=== PATIENT | female | born 1960 | race Caucasian/White ===

== ENCOUNTER → 2021-03-15 00:20 | Outpatient (CLI) | payer OTHER, SELFPAY ==
[2021-03-15 17:22] LABS: SARS-CoV-2 RNA PCR Negative (Negative)
== END ==
PROVIDERS: Visit Provider Surgery
DX: Z01.812 Encounter for preprocedural laboratory examination (principal); Z20.822 Contact with and (suspected) exposure to COVID-19
CPT/HCPCS: C9803; U0003; U0005

== ENCOUNTER 2021-03-15 08:17 | Outpatient (CLI) | payer OTHER, SELFPAY | END 2021-03-15 08:18 | disposition home or self-care (01) | LOC: ANHLAB 08:19 | PROVIDERS: Visit Provider Surgery | DX: Z01.818 Encounter for other preprocedural examination (principal); K41.90 Unilateral femoral hernia, without obstruction or gangrene, not specified as recurrent | CPT/HCPCS: 36415; 86850; 86900; 86901 ==

== ENCOUNTER 2021-03-18 01:42 | Day surgery (SDC) | payer OTHER, SELFPAY ==
[2021-03-13 14:32] VITALS: BMI 23.3
--- NOTE | 2021-03-13 15:01 | PC.NURSE ---
Report to the Outpatient Waiting Room, entrance under the green pavilion located off [facility], at time ___11:30AM_ on date __03/18/21 . OR Time: ___1:30PM . - You and your visitor will be asked a series of questions to screen for COVID 19 for your protection. - A mask is required within the hospital. - Only one visitor is allowed at this time. Patient visitors will be guided where to wait when not with patient. Preoperative COVID Testing Requirements: No COVID Test needed if: (proof is required; if not received patient will have Rapid Test prior to entry) - Patient has received COVID Vaccine at least 14 days prior to procedure date or - Patient has positive COVID test result within last 90 days of surgery date. COVID Test needed if above criteria is not met *COVID TESTING 03/15/21 AT 8:05AM If not COVID vaccinated a COVID test must be conducted within 72 hours of surgery and patient is asked to isolate self from time of testing until procedure. You will go to the [facility] for your COVID testing. The [facility] site is located at the corner of [address] [facility]. You will only be called if COVID results are positive and your surgeon may reschedule your elective surgery date. Patients may have clear liquids (water, carbonated beverages, clear teas, apple juice) until 3 hours prior to surgery with a maximum of 20 ounces. - No food from midnight until time of surgery - Infants may have breast milk until 4 hours before surgery, formula 6 hours prior to surgery. - Children will be allowed to drink immediately following surgery. If applicable, please bring a bottle or sippy cup to assist with drinking. Juice, water, soda, and popsicles are readily available. For infants on formula, please bring formula the day of surgery. Pacifiers are allowed. Take the following medications with a SIP of water the morning of surgery: ___NONE Medications to discontinue per physician ALL VITAMINS/SUPPLEMENTS 3 DAYS PRE-OP Date to take last dose 03/15/21 *HIBICLENS SHOWER MORNING OF SURGERY* Please no make-up, nail occitan, hairspray, perfume, deodorant, or body powder the day of surgery. No jewelry (including any body piercings) or valuables the day of surgery, leave them at home. Please take a shower or bath the night before, or the morning of, surgery with an antibacterial soap. Wear comfortable, loose fitting clothing. Children are encouraged to wear pajamas. - Jewelry must be removed prior to entering the operating room. Rings and piercings that are not removed may be cut off. - The hospital will not accept responsibility for valuables. - Please leave all valuables, including medications, at home the day of surgery. If you are going home after surgery, a licensed local owner operator truck driver must drive you home. - NO public transportation without another adult. - We recommend that an adult stay with you for 24 hours following discharge. - We also recommend that you do not drive, make important decision, drink alcoholic beverages, or take any drugs that were not prescribed by your health care provider for at least 24 hours after your discharge time. For Pediatric surgeries, we recommend two adults accompany the child home (only one inside the building at this time). Follow any additional instructions given to you from your surgeon. Telephone instructions given to __PATIENT and asked if any additional questions and then verbalized understanding. Patient advised to call surgeon office or pre surgery nurse liaison [phone] if any additional questions.
--- NOTE | 2021-03-18 09:15 | ECG_ITS ---
Measurements Intervals [place] Rate: 122 P: AK: 0 QRS: 42 QRSD: 85 T: 9 QT: 299 QTc: 426 Interpretive Statements ATRIAL FIBRILLATION WITH RAPID VENTRICULAR RESPONSE BASELINE WANDER- I, II ABNORMAL ECG Electronically Signed On 03-18-2021 12:49:39 SHEET SORTER by Omid Conroy D.O.
[2021-03-18] MEDS: ACETAMINOPHEN 500 MG TABLET 1000 MG PO (11:35)
--- NOTE | 2021-03-18 11:41 | WPDANESEPPF ---
Anes - Initial Pre Proc Eval Procedure: Operation Date: 03/18/21 13:30 Proposed Procedures p Laparoscopic Right Femoral Hernia Repair with Mesh, Davinci Assisted - Andrew Villela DO Date/Time: 03/18/21 11:41 Surgeon: Andrew Villela DO Pre Op Diagnosis: right femoral hernia Patient Data Age: 60 Gender: F Height: 1.57 m Weight: 58 kg Allergies Allergy/AdvReac Type Severity Reaction Status Date / Time No Known Allergies Allergy Mild Verified 03/18/21 11:33 Home Medications Medication Instructions Recorded Confirmed Type multivitamin 1 tablet PO DAILY 01/03/21 03/13/21 History ascorbic acid (vitamin C) 1,500 mg PO DAILY 03/13/21 03/13/21 History calcium carbonate-vitamin D3 1 tablet PO DAILY 03/13/21 03/13/21 History [Calcium + D] cholecalciferol (vitamin D3) 50 mcg PO DAILY 03/13/21 03/13/21 History vitamin B complex 1 cap PO DAILY 03/13/21 03/13/21 History zinc 100 mg PO DAILY 03/13/21 03/13/21 History Results Review: All pre-operative results and documents have been reviewed as part of the pre-operative evaluation. [facility] Past Medical History Medical History (Updated 03/18/21 @ 11:45 by Sal Prado MD) Brain aneurysm clipping 2005, mild vertigo/balance issues COPD (chronic obstructive pulmonary disease) Family History Family History Father Heart base tumor Mother Carcinoma of colon Sibling No problems noted. Sibling No problems noted. Social History Social History Smoking packs per day: 0.75 Smoking cigarettes per day: 15.0 Years smoked: 45 Smoking pack-years: 33.75 Smoking status: Former smoker Tobacco type: cigarettes Alcohol intake: current Drinks per week: 20 Substance use: never Living arrangements: alone Spiritual care concerns: No Anes - Eval Final PreProcedure Day of Procedure 03/18/21 11:41 Patient weight: normal Heart: regular rate and rhythm Lungs: clear to auscultation and normal air movement Airway: Mallampati scale class II Neurological: alert and oriented Last oral intake: >/= 8 hours ASA classification: III Emergent: no Anesthetic plan: proceed Anesthesia type and monitoring: general LMA Results Review: All pre-operative results and documents have been reviewed as part of the pre-operative evaluation. Informed Consent: The patient's anesthetic plan and its attendant risks and benefits were discussed with the patient/family/POA. Questions were solicited and answers provided to the satisfaction of the patient/family/POA.
[2021-03-18 11:45] VITALS: BP 131/76; PULSE 117; RESP 18; TEMP 36.4; O2SAT 98
--- NOTE | 2021-03-18 12:01 | SUR.PREOP ---
Informed Dr Prado and Dr Villela of patient's ekg showing new onset rapid afib. Dr Prado speaking with patient.
--- NOTE | 2021-03-18 12:20 | SUR.PREOP ---
Case cancelled. Patient taken per w/c to ER.
== END 2021-03-18 12:15 | disposition home or self-care (01) ==
PROVIDERS: Visit Provider Surgery
PROC: 8E0Y4CZ Robotic Assisted Procedure of Lower Extremity, Percutaneous Endoscopic Approach (ICD-10-PCS; CPT 49650; principal; 2021-03-18 13:30)
DX: K41.90 Unilateral femoral hernia, without obstruction or gangrene, not specified as recurrent (principal); I48.91 Unspecified atrial fibrillation; Z53.09 Procedure and treatment not carried out because of other contraindication
CPT/HCPCS: 93005; 99213; A9270; G0463

== ENCOUNTER 2021-03-18 12:14 | Emergency (ER) | payer OTHER, SELFPAY ==
[2021-03-18] VITALS (26 sets, daily range): BP systolic 107–152; BP diastolic 76–96; PULSE 77–121; RESP 13–35; TEMP 36.1–36.5; O2SAT 94–100
--- NOTE | ~2021-03-18 | XR_ITS ---
XR chest 2V 03/18/2021 15:55 Indication: Atrial fibrillation Procedure: PA and lateral views the chest Comparison: 03/11/2009 Findings: There is a new 1 cm nodule overlying the left midlung. No focal pneumonia, edema, pleural e ffusion or pneumothorax. There is left basilar atelectasis. There is scoliosis. Impression: 1: New 1 cm nodule left midlung. Follow-up CT chest recommended. Reviewed, dictated and finalized at location A. TIZER Impression: 1: New 1 cm nodule left midlung. Follow-up CT chest recommended.
--- NOTE | 2021-03-18 15:47 | ECG_ITS ---
Measurements Intervals [place] Rate: 107 P: IA: 0 QRS: 68 QRSD: 85 T: 24 QT: 296 QTc: 395 Interpretive Statements ATRIAL FLUTTER/TACHYCARDIA WITH RAPID VENTRICULAR RESPONSE NONSPECIFIC T-WAVE ABNORMALITY- ANTEROLAT/HIGH LAT LEADS ABNORMAL ECG Electronically Signed On 03-18-2021 16:21:09 VINYL WELDER AND FABRICATOR by Omid Conroy D.O.
--- NOTE | 2021-03-18 16:01 | ED.ARRPALP ---
HPI - Arrhythmia/Palpitations General Chief Complaint: Arrhythmia/Palpitations <Anaid Brown MD - Last Filed: 03/19/21 18:11> Stated Complaint: Sent from Pre-op, New A-fib. <Anaid Brown MD - Last Filed: 03/19/21 18:11> Time Seen by Provider: 03/18/21 15:41 <Anaid Brown MD - Last Filed: 03/19/21 18:11> Source: patient and RN notes reviewed <Anaid Brown MD - Last Filed: 03/19/21 18:11> Mode of arrival: ambulatory <Anaid Brown MD - Last Filed: 03/19/21 18:11> Limitations: no limitations <Anaid Brown MD - Last Filed: 03/19/21 18:11> History of Present Illness HPI narrative: This is a 60 year old female who presents for evaluation of an arrhythmia. Patient had an EKG performed in preop before her hernia surgery, and she was found to be in new onset afib with RVR. She denies history of arrhythmia diagnosis. She reports she may have noticed heart racing over the past years 1 or 2 times. She denies heart racing, dizziness, chest pain, dizziness, nausea, vomiting or diarrhea. She reports shortness of breath but states this has been present for 1 year. She attributes her shortness of breath due to her smoking. She does not take any medications. <Anaid Brown MD - Last Filed: 03/19/21 18:11> Related Data Home Medications: Home Medications Medication Instructions Recorded Confirmed multivitamin 1 tablet PO DAILY 01/03/21 03/13/21 ascorbic acid (vitamin C) 1,500 mg PO DAILY 03/13/21 03/13/21 calcium carbonate-vitamin D3 1 tablet PO DAILY 03/13/21 03/13/21 [Calcium + D] cholecalciferol (vitamin D3) 50 mcg PO DAILY 03/13/21 03/13/21 vitamin B complex 1 cap PO DAILY 03/13/21 03/13/21 zinc 100 mg PO DAILY 03/13/21 03/13/21 <Anaid Brown MD - Last Filed: 03/19/21 18:11> Allergies/Adverse Reactions: Allergies Allergy/AdvReac Type Severity Reaction Status Date / Time No Known Allergies Allergy Mild Verified 03/18/21 15:39 <Anaid Brown MD - Last Filed: 03/19/21 18:11> Review of Systems Review of Systems: All systems reviewed & are unremarkable except as noted in HPI and below <Anaid Brown MD - Last Filed: 03/19/21 18:11> [facility] Past Medical History Medical History: Medical History (Updated 03/19/21 @ 01:34 by Yue Segovia MD) Brain aneurysm clipping 2005, mild vertigo/balance issues COPD (chronic obstructive pulmonary disease) <Anaid Brown MD - Last Filed: 03/19/21 18:11> Surgical History Surgical History: Surgical History (Updated 03/18/21 @ 16:20 by Anaid Brown MD) Hx of tonsillectomy <Anaid Brown MD - Last Filed: 03/19/21 18:11> Family History Family History: Family History Father Heart base tumor Mother Carcinoma of colon Sibling No problems noted. Sibling No problems noted. <Anaid Brown MD - Last Filed: 03/19/21 18:11> Social History Social History: Social History (Updated 03/18/21 @ 16:20 by Anaid Brown MD) Smoking packs per day: 0.75 Smoking cigarettes per day: 15.0 Years smoked: 45 Smoking pack-years: 33.75 Smoking status: Former smoker Tobacco type: cigarettes Alcohol intake: current Drinks per week: 20 Alcohol use details: 2 beers per night Substance use: never Spiritual care concerns: No <Anaid Brown MD - Last Filed: 03/19/21 18:11> Exam Const: General: no acute distress and alert <Anaid Brown MD - Last Filed: 03/19/21 18:11> Orientation/consciousness: patient oriented x3 <Anaid Brown MD - Last Filed: 03/19/21 18:11> Eyes: EOM: EOMs intact bilaterally <Anaid Brown MD - Last Filed: 03/19/21 18:11> Resp: Effort & Inspection: normal respiratory effort and no retractions <Anaid Brown MD - Last Filed: 03/19/21 18:11> Auscultation: clear to auscultation bilaterally <Anaid Camilo
[2021-03-18] MEDS: METOPROLOL TARTRATE INJ 5 MG/5 ML VIAL IV PUSH (16:16)
[2021-03-18 16:32] LABS: Basophils Percent Auto 0.5 % (0.2-1.2); Eosinophils Absolute Auto 0.1 K/mm3 (0-0.3); Eosinophils Percent Auto 2.5 % (0-4.4); Hematocrit 45.2 % (37.0-47.0); Hemoglobin 14.7 g/dL (12.0-15.0); Immature Granulocyte Absolute 0.01 K/mm3 (0.00-0.031); Immature Granulocyte Percent A 0.3 % (0-0.5); Lymphocytes Absolute Auto 1.44 K/mm3 (0.9-3.2); Lymphocytes Percent Auto 36.2 % (18.3-44.2); Mean Corpuscular HGB Conc 32.5 g/dl (32-36); Mean Corpuscular Hemoglobin 30.5 pg (26-34); Mean Corpuscular Volume 93.8 fl (80-100); Mean Platelet Volume 12.8 fl (7.4-10.4); Monocytes Absolute Auto 0.4 K/mm3 (0.1-0.6); Monocytes Percent Auto 9.3 % (2.6-8.5); Neutrophils Percent Auto 51.2 % (45.5-73.1); Platelet Count Result 93 k/mm3 (150-375); Red Blood Count 4.82 M/mm3 (4.2-5.4); Red Cell Distribution Width 12.4 % (11.5-14.5)
[2021-03-18 16:44] LABS: Prothrombin Time 13.5 Seconds (11.1-14.7)
[2021-03-18 16:45] LABS: Alanine Aminotransferase 27 U/L (4-35); Albumin Level 4.1 g/dL (3.5-5.1); Alkaline Phosphatase 101 U/L (38-126); Anion Gap 6 mmol/L (8-16); Aspartate Amino Transferase 26 U/L (14-36); Bilirubin,Total 1.1 mg/dL (0.2-1.3); Blood Urea Nitrogen 15 mg/dL (7-17); Calcium 9.9 mg/dL (8.4-10.2); Carbon Dioxide 25 mmol/L (22-30); Chloride 105 mmol/L (98-107); Estimated CRCL calculation 94 ml/min; Estimated Glomerular Filt Rate > 60; Glucose 92 mg/dL (65-110); Magnesium 1.9 mg/dL (1.6-2.3); Partial Thromboplastin Time 24.4 SECONDS (22.3-36.8); Potassium 4.3 mmol/L (3.4-5.0); Sodium 136 mmol/L (137-145)
[2021-03-18 16:51] LABS: NT Pro B Type Natriuretic Pept 1080 pg/mL (5-100)
[2021-03-18 17:02] LABS: Ethanol < 10 mg/dL (<10)
[2021-03-18] MEDS: METOPROLOL TARTRATE 25 MG TABLET PO (17:23)
[2021-03-18 17:46] LABS: Thyroid Stimulating Hormone Reflex < 0.015 uIU/mL (0.465-4.68)
[2021-03-18 18:17] LABS: Free T4 Free Thyroxine Reflex 3.39 ng/dL (0.78-2.19)
--- NOTE | 2021-03-18 19:14 | PC.NURSE ---
Pt not wanting to be admitted to the hospital. Per MD Segovia, pt to sign out AMA, however he wrote a prescription and followup information for patient to take with her. Reviewed risks of leaving with pt who verbalized understanding. Pt appreciative of the prescription and cardiology/PCP follow up information provided, states she has new insurance and doesn't know what it will cover so she does not wish to stay and agrees to comply with followup instructions. Pt A&Ox4 in NAD upon leaving with visitor, VS as documented. IV removed.
== END 2021-03-18 19:17 | disposition left against medical advice (07) ==
PROVIDERS: Emergency Provider General Practice
DX: I48.91 Unspecified atrial fibrillation (principal); E05.90 Thyrotoxicosis, unspecified without thyrotoxic crisis or storm; J44.9 Chronic obstructive pulmonary disease, unspecified; Z87.891 Personal history of nicotine dependence; R94.31 Abnormal electrocardiogram [ECG] [EKG]
CPT/HCPCS: 36415; 71046; 80053; 80307; 83735; 83880; 84439; 84443; 85025; 85610; 85730; 93005; 96374; 99284; A9270

== ENCOUNTER 2021-04-18 15:02 | Outpatient (CLI) | payer OTHER, SELFPAY ==
--- NOTE | 2021-04-18 | ECHO_ITS ---
Patient Info Name: Yenny Christy Age: 60 years : 1960 Gender: Female Ht: 63 in Wt: 130 lbs BSA: 1.63 m2 HR: 107 bpm BP: 143 / 83 mmHg Heart Rhythm: Atrial Fibrillation Technical Quality: Good Exam Date: 04/18/2021 3:26 PM Exam Location: [facility] Patient Status: Outpatient Admit Date: 04/18/2021 Staff Ordering Physician: Orville Jones MD Fermentation Engineer: Raven Griffith RCS Attending Provider: Orville Jones MD Exam Type: CA echo doppler color flow Study Info Indications - persistant afib Complete two-dimensional, color flow and Doppler transthoracic echocardiogram is performed. Summary 1. Complete two-dimensional, color flow and Doppler transthoracic echocardiogram is performed. 2. Left ventricular chamber dimension is normal. 3. Left ventricular systolic function is normal, estimated at 65-70%. 4. There is mildly increased left ventricular wall thickness. 5. The left ventricular diastolic function is indeterminate. 6. Left atrial chamber dimension is moderately enlarged. 7. Right atrial chamber dimension is mildly enlarged. 8. There is mild to moderate mitral valve regurgitation. 9. The mitral valve has thickened leaflets. 10. There is mild tricuspid valve regurgitation. 11. Mild pulmonary hypertension, estimated pulmonary arterial systolic pressure is 35 mmHg. 12. There is mild pulmonic regurgitation. Left Ventricle Left ventricular chamber dimension is normal. Left ventricular systolic function is normal, estimated at 65-70%. There is mildly increased left ventricular wall thickness. The left ventricular diastolic function is indeterminate. Right Ventricle Right ventricular chamber dimension is normal. Right ventricular systolic function is normal. Left Atria Left atrial chamber dimension is moderately enlarged. Right Atria Right atrial chamber dimension is mildly enlarged. Atrial Septum Intact interatrial septum visualized by color flow imaging. Aortic Valve The aortic valve is trileaflet. There is no aortic valve sclerosis. There is no aortic valve stenosis. There is trace aortic valve regurgitation. Pulmonic Valve The pulmonic valve is normal. There is no pulmonic valve stenosis. There is mild pulmonic regurgitation. Mitral Valve The mitral valve has thickened leaflets. There is no mitral valve stenosis. There is mild to moderate mitral valve regurgitation. Tricuspid Valve The tricuspid valve leaflets are normal. There is no significant tricuspid valve stenosis. There is mild tricuspid valve regurgitation. Mild pulmonary hypertension, estimated pulmonary arterial systolic pressure is 35 mmHg. Pericardium/Pleural The pericardium appears normal. There is no pericardial effusion. Inferior Vena Cava Dilated inferior vena cava with >50% collapse upon inspiration consistent with elevated right atrial pressure, 10 mmHg. Aorta The aortic root size at the sinus of Valsalva is normal. Left Ventricular Outflow Tract Name Value Normal LVOT 2D LVOT Diameter 2.0 cm LVOT Doppler LVOT Peak Gradient 5 mmHg LVOT
== END 2021-04-18 15:03 | disposition home or self-care (01) ==
LOC: ANHCARD 15:04
PROVIDERS: Visit Provider Internal Medicine Cardiovascular Disease
DX: I48.19 Other persistent atrial fibrillation (principal); E05.90 Thyrotoxicosis, unspecified without thyrotoxic crisis or storm; I27.20 Pulmonary hypertension, unspecified; I51.7 Cardiomegaly
CPT/HCPCS: 93306

== ENCOUNTER 2023-03-11 00:06 | Day surgery (SDC) | payer OTHER, SELFPAY ==
[2023-03-01 16:03] VITALS: BMI 25.2
--- NOTE | 2023-03-09 10:39 | SUR.PREOP ---
Patient called regarding upcoming procedure. Reviewed preop instructions, appointment times, and procedure prep.
--- NOTE | 2023-03-10 15:08 | PM.HPGS ---
History of Present Illness History of Present Illness Consent: Risks, benefits, and alternatives have been discussed and questions answered. Patient agrees to proceed with procedure. Chief complaint: other fecal abnormalities,neoplasm screening Narrative: Yenny Christy is a 62 year old female referred for colon cancer screening. Review of Systems Review of Systems: All systems reviewed & are unremarkable except as noted in HPI and below PMFSH Past Medical History Medical History Brain aneurysm clipping 2005, mild vertigo/balance issues COPD (chronic obstructive pulmonary disease) Difficulty breathing Fatigue Hot flashes Swollen feet Surgical History Surgical History Hx of tonsillectomy S/P aneurysm repair Family History Family History Father Heart base tumor Mother Carcinoma of colon Sibling No problems noted. Sibling No problems noted. Social History Social History Smoking packs per day: 0.5 Smoking cigarettes per day: 10.0 Years smoked: 45 Smoking pack-years: 22.50 Smoking status: Current every day smoker Tobacco type: cigarettes Second hand tobacco smoke exposure: Yes Alcohol intake: current Drinks per week: 8 Alcohol use details: DRINKS Substance use: current Substance use type: marijuana Other substance usage details: SMOKES AND GUMMIES- OCC. Living arrangements: with family Spiritual care concerns: No Meds Home Medications and Allergies Home Medications Medication Instructions Recorded Confirmed Type ascorbic acid (vitamin C) 500 mg 1,500 mg PO DAILY 03/13/21 03/01/23 History chewable tablet calcium carbonate 600 mg-vitamin 1 tablet PO DAILY 03/13/21 03/01/23 History D3 5 mcg (200 unit) tablet cholecalciferol (vitamin D3) 50 100 mcg PO DAILY 03/13/21 03/01/23 History mcg (2,000 unit) tablet vitamin B complex 2 cap PO DAILY 03/13/21 03/01/23 History metoprolol tartrate 50 mg tablet 50 mg PO DAILY 07/21/22 03/01/23 History potassium chloride 99 mg PO DAILY 02/16/23 03/01/23 History methimazole 5 mg tablet 5 mg PO 03/01/23 History zinc 50 mg capsule 50 mg PO DAILY 03/01/23 03/01/23 History Allergies Allergy/AdvReac Type Severity Reaction Status Date / Time No Known Allergies Allergy Mild Verified 03/11/23 09:12 Exam Const: General: alert Orientation/consciousness: patient oriented x3 Resp: Auscultation: clear to auscultation bilaterally Cardio: Rhythm: regular rhythm GI: GI Palp: Yes Soft to palpation and No Tenderness to palpation present (GI) Neuro: General: patient oriented x3 Assessment and Plan Assessment and plan (1) Colon cancer screening: Code(s): Z12.11 - Encounter for screening for malignant neoplasm of colon Status: Acute Assessment and Plan: Colonoscopy with possible biopsy or polypectomy or cautery or injection of substances.
[2023-03-11 09:14] VITALS: BP 156/74; PULSE 85; RESP 18; TEMP 36.3; O2SAT 99
[2023-03-11] MEDS: LACTATED RINGERS 1,000 ML 150 ML IV CONT (09:17)
--- NOTE | 2023-03-11 09:33 | WPDANESEPPF ---
Anes - Initial Pre Proc Eval Procedure: Operation Date: 03/11/23 10:00 Proposed Procedures p Colonoscopy - Steven Wilcox MD Date/Time: 03/11/23 09:33 Surgeon: Steven Wilcox MD Pre Op Diagnosis: other fecal abnormalities,neoplasm screening Patient Data Age: 62 Gender: F Height: 1.57 m Weight: 62.7 kg Last Vital Signs Temp 97.3 F L 03/11/23 09:14 Pulse 85 03/11/23 09:14 Resp 18 03/11/23 09:14 BP 156/74 H 03/11/23 09:14 Pulse Ox 99 03/11/23 09:14 O2 Del Method Room Air 03/11/23 09:14 Allergies Allergy/AdvReac Type Severity Reaction Status Date / Time No Known Allergies Allergy Mild Verified 03/11/23 09:12 Home Medications Medication Instructions Recorded Confirmed Type ascorbic acid (vitamin C) 500 mg 1,500 mg PO DAILY 03/13/21 03/01/23 History chewable tablet calcium carbonate 600 mg-vitamin 1 tablet PO DAILY 03/13/21 03/01/23 History D3 5 mcg (200 unit) tablet cholecalciferol (vitamin D3) 50 100 mcg PO DAILY 03/13/21 03/01/23 History mcg (2,000 unit) tablet vitamin B complex 2 cap PO DAILY 03/13/21 03/01/23 History metoprolol tartrate 50 mg tablet 50 mg PO DAILY 07/21/22 03/01/23 History potassium chloride 99 mg PO DAILY 02/16/23 03/01/23 History methimazole 5 mg tablet 5 mg PO 03/01/23 History zinc 50 mg capsule 50 mg PO DAILY 03/01/23 03/01/23 History Patient hx anesthesia problems: none Family hx anesthesia problems: none Results Review: All pre-operative results and documents have been reviewed as part of the pre-operative evaluation. [facility] Past Medical History Medical History Brain aneurysm clipping 2005, mild vertigo/balance issues COPD (chronic obstructive pulmonary disease) Difficulty breathing Fatigue Hot flashes Swollen feet Surgical History Surgical History Hx of tonsillectomy S/P aneurysm repair Family History Family History Father Heart base tumor Mother Carcinoma of colon Sibling No problems noted. Sibling No problems noted. Social History Social History Smoking packs per day: 0.5 Smoking cigarettes per day: 10.0 Years smoked: 45 Smoking pack-years: 22.50 Smoking status: Current every day smoker Tobacco type: cigarettes Second hand tobacco smoke exposure: Yes Alcohol intake: current Drinks per week: 8 Alcohol use details: DRINKS Substance use: current Substance use type: marijuana Other substance usage details: SMOKES AND GUMMIES- OCC. Living arrangements: with family Spiritual care concerns: No Anes - Eval Final PreProcedure Day of Procedure 03/11/23 09:33 Patient weight: normal Heart: regular rate and rhythm Lungs: clear to auscultation Airway: Mallampati scale class II Neurological: alert and oriented Last oral intake: >/= 8 hours ASA classification: III Emergent: no Anesthetic plan: proceed Anesthesia type and monitoring: general GIVS and standard monitoring Results Review: All pre-operative results and documents have been reviewed as part of the pre-operative evaluation. Informed Consent: The patient's anesthetic plan and its attendant risks and benefits were discussed with the patient/family/POA. Questions were solicited and answers provided to the satisfaction of the patient/family/POA.
[2023-03-11] MEDS: SIMETHICONE ORAL SUSPENSION 20 MG/0.3 ML 30 ML BOTTLE 0.6 ML IRRIGATION (09:48)
[2023-03-11 09:54] VITALS: BP 123/81; PULSE 80; RESP 20; O2SAT 98
[2023-03-11 10:04] VITALS: BP 138/84; PULSE 76; RESP 18; O2SAT 100
[2023-03-11 10:14] VITALS: BP 146/78; PULSE 78; RESP 21; O2SAT 100
== END 2023-03-11 10:30 | disposition home or self-care (01) ==
PROVIDERS: PCP Nurse Practitioner Family; Visit Provider Internal Medicine Gastroenterology
PROC: 0DJD8ZZ Inspection of Lower Intestinal Tract, Via Natural or Artificial Opening Endoscopic (ICD-10-PCS; CPT 45378; principal; 2023-03-11 10:00)
DX: Z12.11 Encounter for screening for malignant neoplasm of colon (principal); D12.8 Benign neoplasm of rectum; K57.30 Diverticulosis of large intestine without perforation or abscess without bleeding; J44.9 Chronic obstructive pulmonary disease, unspecified; F17.210 Nicotine dependence, cigarettes, uncomplicated; F12.90 Cannabis use, unspecified, uncomplicated
CPT/HCPCS: 45380; 88305; J2704; J7120

== ENCOUNTER 2023-06-09 13:22 | Outpatient (CLI) | payer OTHER, SELFPAY ==
--- NOTE | ~2023-06-09 | MM_ITS ---
EXAMINATION: MM scrn ta implant BI w dalia HISTORY: Screening mammogram TECHNIQUE: Craniocaudal and mediolateral oblique 3-D tomosynthesis images with implant displacement a nd synthetic 2-D images were generated. Craniocaudal and mediolateral oblique views of the breasts wi thout implant displacement were obtained using full field digital mammography. CAD analysis was submi tted and interpreted. COMPARISON: 11/24/2012 bilateral implant screening mammogram BREAST PARENCHYMAL COMPOSITION: There are scattered areas of fibroglandular density. FINDINGS: Status post bilateral augmentation mammoplasty. Prominent calcifications are noted along th e left implant margin. There is no evidence of suspicious mass, calcification, or architectural disto rtion to suggest malignancy in either breast. There has been no suspicious interval change. IMPRESSION: 1. No mammographic evidence of malignancy. 2. Recommend routine screening mammography in one year. BI-RADS Category 1: Negative Reviewed, dictated and finalized at location A.
== END 2023-06-09 13:23 | disposition home or self-care (01) ==
LOC: ANHIMG 13:25
PROVIDERS: PCP Nurse Practitioner Family; Visit Provider Nurse Practitioner Family
DX: Z12.31 Encounter for screening mammogram for malignant neoplasm of breast (principal)
CPT/HCPCS: 77063; 77067

== ENCOUNTER 2023-09-10 15:19 | Outpatient (CLI) | payer OTHER, SELFPAY ==
--- NOTE | ~2023-09-10 | XR_ITS ---
XR shoulder RT min 2V Ordering provider: Jacque Russell APRN History: . right shouldr pain, no known injury . Comparison: None. FINDINGS: BONES: No acute fracture or dislocation. JOINT SPACES: The acromioclavicular joint is normal. The glenohumeral joint is normal. SOFT TISSUES: Normal. IMPRESSION: No acute osseous abnormality right shoulder. Reviewed, dictated and finalized at location A.
== END 2023-09-10 15:20 | disposition home or self-care (01) ==
LOC: ANHIMG 15:20
PROVIDERS: PCP Nurse Practitioner Family; Visit Provider Nurse Practitioner Family
DX: M25.511 Pain in right shoulder (principal)
CPT/HCPCS: 73030

== ENCOUNTER 2024-03-23 11:39 | Outpatient (CLI) | payer OTHER, SELFPAY ==
--- NOTE | ~2024-03-23 | CT_ITS ---
EXAMINATION: CT shoulder RT wo con DATE: 03/23/2024 12:09 INDICATION: Primary osteoarthritis of the right shoulder. TECHNIQUE: High resolution computed tomography (CT) of the right shoulder was performed without intra venous contrast. Additional sagittal and coronal reconstructions were performed. Automated exposure c ontrol and iterative reconstruction technique were employed. The dose-length product was 242.28 mGy-c m. COMPARISON: None FINDINGS: Bone alignment is normal. No fracture. Moderate osteoarthritis at the right glenohumeral and acromioc lavicular joints. No joint effusion. No asymmetric muscular atrophy of the right rotator cuff or shou lder girdle. No pathologically enlarged lymphadenopathy at the right axilla, right hilum or visualize d portion of the mediastinum. Right breast implant. Multiple nodules in the visualized right thyroid lobe. Mild right apical pleural-parenchymal scarring and tiny calcified right apical nodule consisten t with old granulomatous disease. IMPRESSION: 1. Moderate right glenohumeral and acromioclavicular osteoarthritis. 2. Multinodular goiter. Consider thyroid ultrasound for risk stratification. Reviewed, dictated and finalized at location B. INSTALLER
== END 2024-03-23 11:40 | disposition home or self-care (01) ==
LOC: MICIMG 11:39
PROVIDERS: PCP Nurse Practitioner Family; Visit Provider Physician Assistant Surgical
DX: M19.011 Primary osteoarthritis, right shoulder (principal); E04.2 Nontoxic multinodular goiter
CPT/HCPCS: 73200